=== PATIENT | male | born 1965 | race Caucasian/White ===

== ENCOUNTER 2016-11-18 14:29 | Outpatient (CLI) | payer OTHER ==
[~2016-11-18] VITALS: Ht 165.1 cm; Wt 68.2 kg
[2016-11-18 14:57] VITALS: BP 121/71; PULSE 89; RESP 18; Ht 165.1 cm; Wt 68.2 kg
[2016-11-18] MEDS ORDERED: AMO500 PO (15:03)
[2016-11-18] MEDS ORDERED: PANT40TA3 PO (15:03)
[2016-11-18] MEDS ORDERED: MV C PO (15:03)
[2016-11-18] MEDS ORDERED: THIA100T10 PO (15:03)
[2016-11-18] MEDS ORDERED: AMLO2.5T78 PO (15:03)
[2016-11-18] MEDS ORDERED: CLAR500T PO (15:03)
--- NOTE | 2016-11-18 16:10 | PN ---
Date/Time of Note Date/Time of Note DATE: 11/18/16 TIME: 16:06 Outpatient Progress Note Chief Complaint GI bleeding/PUD/cirrhosis/thrombocytopenia/hypertension/alcohol abuse, HPI GI bleeding/patient had a upper GI bleeding, patient was recently hospitalized, no hematemesis, no melena at present, patient on medication, PUD/patient has a peptic ulcer disease, aggravated by alcohol, patient used to drink 3 beers per day, minimum, no heartburn at present, medication, Cirrhosis/no nausea vomiting hematemesis of melena, no ascites, Hypertension/no headache or dizziness, no nausea or vomiting, no local focal weakness, Alcohol abuse/patient used to drink 3-4 cans of beer every day, has cirrhosis of liver, and thrombocytopenia, Review of Systems Const: No Fever, no chills, no Wt. loss, no Fatigue, normal appetite, no diaphoresis. Eyes: No pain, no discharge, no redness, no visual change, no foreign body. ENT: No pain, no bleeding, no congestion, no sore throat, no dysphagia, no discharge or rhinitis. Lymph: No adenopathy, no tender nodes, no lymphedema. Resp: No SOB, no cough, no sputum, no wheezing, no chest pain., Hemoptysis, CV: No chest pain, no palpitaions, no NASSAR, no PND, no edema. GI: Normal appetite, no pain, no nausea, no vomiting, no diarrhea, no blood, no constipation. : No frequency, no urgency, no dysuria, no hematuria, no flank pain, no discharge, no bleeding. Musc:, no back pain, no neck pain, no knee pain, no restricted ROM. Skin: No rash, no skin lesions, no erythema, no laceration, no bruising, no pruritus. Neuro: No MCKNIGHT, no dizziness, no syncope, no seizure, no focal-weakness. Endo: No polyuria, no polydypsia, no dry-skin, no temp-intolerance. Psych: No hallucinations, no depression, no anxiety, no suicidal ideation. Ext: No edema, no pain, no ulcer, no weakness. Physical Exam Vital Signs Date Time Temp Pulse Resp B/P Pulse Ox O2 Delivery O2 Flow Rate FiO2 11/18/16 14:57 98.6 89 18 121/71 98 Room Air General Appearance: A 51 year-old male who appears well-developed, well- nourished, in no acute distress. HEENT: Head normocephalic, atraumatic. Pupils equal, round, reactive to light and accommodate. Sclerae are no jaundice. Nasal turbinates pink without erythema or nasal discharge. Mucous membranes pink and moist without lesions. Oropharynx clear without any exudate or discharge. NECK: Supple. Trachea midline, No thyromegaly, No cervical lymphadenopathy, No mass, No carotid bruits, No JVD, Carotid pulses 2+ bilaterally. PULMONARY: Clear to auscultaion bilaterally, No retractions, Chest expansion symmetric bilaterally, no rales, no ronchi, no dulness on percussion. CARDIAC: Normal SI and S2, Regular rate and rythm, no murmur, gallop, or rub. GASTROINTESTINAL: Abdomen is soft, minimal epigastric discomfort, no ascites,, Non Rigid, No distention, Positive bowel sounds x4 quadrants, Liver normal. SKIN: Warm, dry, no rash, no bruise, no echmosis. EXTREMITIES: Bilateral lower extremities normal, no edema, no phlabitus, pulse palpable, no contracture. MUSCULOSKELETAL: Spine Normal, Non-tender, Normal range of motion, No swelling, no deformity, no clubbing, or cyanosis, the patient has no edema to bilateral lower extremities, dorsalis pedis pulses palpable bilaterally. NEUROLOGIC: The patient is awake, alert, oriented, responding to yes/no questions appropriately, moving all extremities, cranial nerve intact, normal strenght, normal power, normal coordination, normal gait. Allergies Coded Allergies: No Known Drug Allergies (Verified Allergy, Unknown, 11/18/16) PMH Cirrhosis/PUD/thrombocytopenia/hypertension/alcohol abuse Social Hx Patient everyday smoker, 3 cigarettes per day, patient used to drink 3 beers minimum a day, no more drinking, no drugs, Family Hx Noncontributory Assessment/Plan Impression GI bleeding/PUD/cirrhosis/thrombocytopenia/hypertension/alcohol abuse Plan Patient education done about alcohol and cirrhosis and peptic ulcer and bleeding , patient advised to stop drinking completely, Patient has Protonix for 45 days, patient also has other medication, patient has supply, no need refill at present, Patient encouraged to follow with the primary care physician, If any bleeding or black stool to immediately contact us, CBC CMP, Medications Home Meds Reported Medications Amlodipine Besylate* (Amlodipine Besylate*) 2.5 Mg Tablet, 2.5 MG PO DAILY, #30 TAB 11/18/16 Mv,Ca,Iron,Min/Fa/Phytosterol ([facility] TAB) 1 Each Tablet, 1 EACH PO, TAB 11/18/16 Thiamine* (Thiamine*) 100 Mg Tablet, 100 MG PO DAILY, TAB 11/18/16 Amoxicillin* (Amoxicillin*) 500 Mg Cap, 1000 MG PO BID, #20 CAP 11/18/16 Clarithromycin* (Clarithromycin*) 500 Mg Tablet, 500 MG PO BID, TAB 11/18/16 Pantoprazole* (Protonix*) 40 Mg Tablet., 40 MG PO BID, TAB 11/18/16 DAGOBERTO MCGOVERN MD Nov 18, 2016 16:10
== END 2016-11-18 16:32 | disposition home or self-care (01) ==
LOC: DCC 14:29
PROVIDERS: ATTEND Internal Medicine
DX: K92.2 Gastrointestinal hemorrhage, unspecified (principal); K74.60 Unspecified cirrhosis of liver; I10 Essential (primary) hypertension; D69.6 Thrombocytopenia, unspecified